=== PATIENT | female | born 1945 | race Caucasian/White ===

== ENCOUNTER 2021-04-19 12:58 | Emergency (ER) | payer OTHER ==
[~2021-04-19] VITALS: Ht 170.2 cm; Wt 57.6 kg
[2021-04-19] MEDS ORDERED: LIPITOR20 MG PO (13:29)
[2021-04-19] MEDS ORDERED: ASA81BEC PO (13:30)
[2021-04-19] MEDS ORDERED: LEVOTHYROXINE100 MC2 PO (13:30)
[2021-04-19] MEDS ORDERED: LISINOPRIL10 MG PO (13:30)
[2021-04-19] MEDS ORDERED: OMEPRAZOLE40 MG PO (13:30)
[2021-04-19] MEDS ORDERED: HYDROCHLOROTH12.5 M1 PO (13:30)
[2021-04-19] MEDS ORDERED: SUPER THERAVIT1 EACH PO (13:31)
[2021-04-19] MEDS ORDERED: DRIZALMA SPRINK20 MG PO (13:31)
[2021-04-19] MEDS ORDERED: CEPHALEXIN500 MG PO (14:20)
[2021-04-19 14:32] VITALS: BP 124/70
== END 2021-04-19 14:32 | disposition home or self-care (01) ==
LOC: M.ERS 12:58
DX: L03.116 Cellulitis of left lower limb (principal); I11.0 Hypertensive heart disease with heart failure; K21.9 Gastro-esophageal reflux disease without esophagitis; G30.9 Alzheimer's disease, unspecified; F02.80 Dementia in other diseases classified elsewhere, unspecified severity, without behavioral disturbance, psychotic disturbance, mood disturbance, and anxiety; F05 Delirium due to known physiological condition; Z91.041 Radiographic dye allergy status; Z88.8 Allergy status to other drugs, medicaments and biological substances; Z79.82 Long term (current) use of aspirin; Z79.2 Long term (current) use of antibiotics; Z79.899 Other long term (current) drug therapy